=== PATIENT | female | born 1970 | race Two or more races ===

== ENCOUNTER 2019-02-05 23:52 | Emergency (ER) | payer SELFPAY ==
[~2019-02-05] VITALS: Ht 165.1 cm; Wt 77.1 kg
[~2019-02-05 23:52] MED LIST: NKM
--- NOTE | 2019-02-05 23:53 | NUR ---
ED Nurse Note: pt brought in by RASHAWN via gurney accompanied by ., pt states she twisted her left ankle while dancing after having two alcoholic beverages. pain 10/10 to left ankle area. unable to ambulate. pt is alert, x4. Bp 140/83, p 98, rr 21, bed is in lowest position. safety measures ensured. Will continue to monitor.
[2019-02-06] MEDS ORDERED: Morphine Sulfate 2mg/ml Inj(IV/IM USE ONLY) IM ONE
--- NOTE | 2019-02-06 | Emergency Room Report ---
History of Present Illness General Chief Complaint: Lower Extremity Injury Source: Patient Present Illness HPI Is a 48-year-old female with no past medical history. She presents with chief complaint of left ankle pain. She was at a dance and slipped on wet floor and twisted her ankle. Unable to get up and walk. Unable to bear weight. Pain is 10 out of 10. No other injury. Allergies: Coded Allergies: PENICILLINS (Verified Allergy, Unknown, 02/05/19) Patient History Past Medical History: see triage record, old chart reviewed Past Surgical History: none Pertinent Family History: none Social History: Denies: smoking Last Menstrual Period: n/a Now: No Immunizations: other Reviewed Nursing Documentation: PMH: Agreed; PSxH: Agreed Nursing Documentation-PMH Past Medical History: No Stated History Review of Systems Eye: Denies: eye pain, blurred vision ENT: Denies: ear pain, nose congestion, throat swelling Respiratory: Denies: cough, shortness of breath Cardiovascular: Denies: chest pain, palpitations Gastrointestinal: Denies: abdominal pain, diarrhea, nausea, vomiting Musculoskeletal: Reports: joint pain, joint swelling; Denies: back pain Skin: Denies: rash Neurological: Denies: headache, numbness Endocrine: Denies: increased thirst, increased urine Hematologic/Lymphatic: Denies: easy bruising All Other Systems: negative except mentioned in HPI Physical Exam Vital Signs Date Time Temp Pulse Resp B/P (MAP) Pulse Ox O2 Delivery O2 Flow Rate FiO2 02/05/19 23:46 98.1 104 16 152/98 (116) 98 Room Air Vitals normal except for high blood pressure Sp02 EP Interpretation: reviewed, normal General Appearance: well appearing, no apparent distress, alert Head: normocephalic, atraumatic Eyes: bilateral eye PERRL, bilateral eye EOMI ENT: hearing grossly normal, normal pharynx Neck: full range of motion, supple, no meningismus Respiratory: chest non-tender, lungs clear, normal breath sounds Cardiovascular #1: regular rate, rhythm, no murmur Gastrointestinal: normal bowel sounds, non tender, no mass, no organomegaly, no bruit, non-distended Musculoskeletal: back normal, normal range of motion, other - Left ankle: Diffuse tenderness. There is edema. Decreased range of motion secondary to pain. Pulses normal. Psychiatric: mood/affect normal Procedures Splinting Splinting : Consent: Verbal Location: Ankle Hand-Made Type: plaster Splint: poserior short Pre-Proc Neuro Vasc Exam: normal Post-Proc Neuro Vasc Exam: normal Patient Tolerated: Well Complications: None Progress Patient with sugar thong splint was also placed. Medical Decision Making Diagnostic Impression: Primary Impression: Avulsion fracture of lateral condyle of tibia Qualified Codes: S82.122A - Displaced fracture of lateral condyle of left tibia, initial encounter for closed fracture ER Course Patient with a medial malleolus fracture. She splinted in a Rose dressing. No evidence of dislocation. Mortise view intact. Will discharge home with crutches and orthopedic follow-up. Other X-Ray Diagnostic Results Other X-Ray Diagnostic Results : X-Ray ordered: LEft ankle xrays # of Views/Limited Vs Complete: 3 View Indication: Pain EP Interpretation: Yes Interpretation: no dislocation, other - distal radius frx. STS Impression: Other - avulsion frx of distal radius Electronically Signed by: Nhan Ramirez MD Last Vital Signs Date Time Temp Pulse Resp B/P (MAP) Pulse Ox O2 Delivery O2 Flow Rate FiO2 02/05/19 23:46 98.1 104 16 152/98 (116) 98 Room Air Status: improved Disposition: HOME, SELF-CARE Condition: Stable Scripts Ibuprofen* (MOTRIN*) 600 Mg Tablet 600 MG ORAL THREE TIMES A DAY, #30 TAB 0 Refills Prov: Nhan Ramirez MD 02/06/19 Hydrocodone/Acetaminophen 5-325* (HYDROCODONE/ACETAMINOPHEN 5-325*) 1 Each Tablet 1 TAB ORAL Q6H PRN for For Pain, #30 TAB 0 Refills Prov: Nhan aRmirez MD 02/06/19 Additional Instructions: Nonweightbearing. Elevate leg. Ice pack to the area. Do not take off. Use your crutches. Follow-up with your doctor in 3 to 5 days. You will need a referral to see orthopedic doctor. Return if worse. Nhan Ramirez MD Feb 06, 2019 00:00
--- NOTE | 2019-02-06 00:45 | Diagnostic Imaging Report ---
EXAM: XR Left Ankle Complete, 3 or More Views CLINICAL HISTORY: TRAUMA TECHNIQUE: Frontal, lateral and oblique views of the left ankle. COMPARISON: No relevant prior studies available. FINDINGS: Bones/joints: Acute fracture of the medial malleolus with widening of the medial ankle mortise measuring up to 9 mm. No dislocation. Soft tissues: Mild soft tissue swelling about the ankle. IMPRESSION: Acute fracture of the medial malleolus with widening of the medial ankle mortise measuring up to 9 mm.
[2019-02-06] MEDS ORDERED: IBUPROFEN600 MG ORAL (00:46)
[2019-02-06] MEDS ORDERED: HYDROCODON-ACE1 EA15 ORAL (00:46)
[2019-02-06 00:54] VITALS: BP 135/72
--- NOTE | 2019-02-06 00:56 | NUR ---
ER DISCHARGE NOTE: Patient is cleared to be discharged per ERMD, pt is aox4, on room air, with stable vital signs. a temp leg cast is put on to left lowe leg (ankle). pt was given dc and prescription instructions, pt was able to verbalize understanding, pt id band removed without complications. pt took all belongings. pt left in crutches accompanied by her family members in stable condition.
== END 2019-02-06 00:55 | disposition home or self-care (01) ==
LOC: EDBD 23:52 → EMR 23:58
DX: S82.122A Displaced fracture of lateral condyle of left tibia, initial encounter for closed fracture (principal); W01.0XXA Fall on same level from slipping, tripping and stumbling without subsequent striking against object, initial encounter; Y93.41 Activity, dancing; Y92.9 Unspecified place or not applicable; Z88.0 Allergy status to penicillin
CPT/HCPCS: 29515; 73610; 96372; 99283; J2270